=== PATIENT | female | born 1955 | race African-American/Black ===

== ENCOUNTER 2021-04-26 09:13 | Inpatient (IN) ==
[2021-04-20 12:18] LABS: Basophils % 0.6 % (0.0-0.8); Eosinophils # 0.2 10*3/uL (0.0-0.87); Eosinophils % 3.2 % (0.00-10.9); Hematocrit 38.7 VOL% (35.7-47.0); Hemoglobin 12.3 GM/DL (12.0-16.0); Immature Granulocytes % 0.2 %; Immature Granulocytes Absolute 0.01 #; Mean Corpuscular HGB Conc 31.8 GM/DL (32-36); Mean Corpuscular Volume 90.4 FL (87-102); Mean Platelet Volume 9.3 FL (9.6-12.0); Monocytes % 9.2 % (1.7-12.7); Neutrophils % 47.8 % (38.7-73.9); Platelet Count 283 T/CUMM (130-400); Red Blood Count 4.28 MC/CUMM (3.8-5.5); Red Cell Distribution Width 13.2 % (9.3-17.3)
[2021-04-20 12:33] LABS: Calcium 9.3 MG/DL (8.5-10.1); Osmolality,Calculated 276.5 MOS/KG (273-304); Potassium 3.9 MMOL/L (3.5-5.1)
[2021-04-20 12:51] LABS: Eosinophils 3 % (0-10); Hypochromasia Slight; Lymphocytes 36 % (20-55); Platelet Estimate Normal; Segmented Neutrophils 51 % (50-85); Total Cells Counted 100
[~2021-04-26 09:13] MED LIST: CLINDAMYCIN INJ 900 MG/50 ML PREMIX IV ONE
[2021-04-26] MEDS ORDERED: GABAPENTIN 400 MG CAPSULE PO ONE (09:35)
[2021-04-26] MEDS ORDERED: ACETAMINOPHEN 500 MG TABLET PO ONE (09:35)
[2021-04-26] MEDS ORDERED: DIAZEPAM 5 MG TABLET PO ONE (09:35)
[2021-04-26] MEDS ORDERED: FAMOTIDINE 20 MG TABLET PO ONE (09:35)
[2021-04-26] MEDS ORDERED: LACTATED RINGERS 1,000 ML IV SCH (10:00)
[2021-04-26] MEDS ORDERED: TISSUE ADHESIVE 1 EACH APPLICATOR TOP ONE ×2 (11:25→15:09)
[2021-04-26] MEDS ORDERED: LIDOCAINE 1%/EPI INJ 20 ML VIAL ONE (11:25)
[2021-04-26] MEDS ORDERED: BUPIVACAINE MPF 0.25% 30 ML VIAL ONE (11:25)
[2021-04-26] MEDS ORDERED: SEVOFLURANE 1 UNIT/15 MINUTE INH ONE ×10 (11:33→15:01)
[2021-04-26] MEDS ORDERED: propofoL 200 MG/20 ML VIAL IV ONE ×2 (11:33→13:42)
[2021-04-26] MEDS ORDERED: ONDANSETRON 4 MG/2 ML VIAL ONE ×4 (11:33→14:57)
[2021-04-26] MEDS ORDERED: LIDOCAINE 2% 5 ML VIAL ONE (11:33)
[2021-04-26] MEDS ORDERED: ROCURONIUM 50 MG/5 ML VIAL IV ONE ×2 (11:33→13:42)
[2021-04-26] MEDS ORDERED: MIDAZOLAM 2 MG/2 ML VIAL ONE (11:34)
[2021-04-26] MEDS ORDERED: fentaNYL 100 MCG/2 ML VIAL ONE ×2 (11:34→13:54)
[2021-04-26] MEDS ORDERED: ePHEDrine 50 MG/ML VIAL ONE (12:28)
[2021-04-26] MEDS ORDERED: LACTATED RINGERS 1,000 ML IV ONE (12:41)
[2021-04-26] MEDS ORDERED: PHENYLEPHRINE 1 MG/10 ML SYRINGE IV ONE ×2 (12:41→15:33)
[2021-04-26] MEDS ORDERED: DEXAMETHASONE 4 MG/1 ML VIAL ONE ×2 (12:52→14:52)
[2021-04-26] MEDS ORDERED: GLYCOPYRROLATE 0.4 MG/2 ML VIAL ONE (14:52)
[2021-04-26] MEDS ORDERED: diphenhydrAMINE 50 MG/1 ML VIAL IV PRN (15:39)
[2021-04-26] MEDS ORDERED: MEPERIDINE 25 MG/1 ML VIAL IV PRN (15:39)
[2021-04-26] MEDS ORDERED: PROMETHAZINE INJ 25 MG in SODIUM CHLORIDE 0.9% 50 ML IV PRN (15:39)
[2021-04-26] MEDS ORDERED: HYDROmorphone 2 MG/1 ML VIAL IV PRN (15:39)
[2021-04-26] MEDS ORDERED: ONDANSETRON 4 MG/2 ML VIAL IV PRN (15:39)
[2021-04-26] MEDS: MORPHINE 4 MG/1 ML VIAL IV PRN (16:59)
[2021-04-26] MEDS: DEXTROSE 5% LACTATED RINGERS 1,000 ML IV SCH (18:14)
[2021-04-26] MEDS: ONDANSETRON 4 MG/2 ML VIAL IV PRN (19:21)
[2021-04-26] MEDS: ROSUVASTATIN 20 MG TABLET PO SCH (21:07)
[2021-04-26] MEDS: metroNIDAZOLE INJ 500 MG/100 ML PREMIX IV SCH (21:07)
[2021-04-26] MEDS: ALVIMOPAN 12 MG CAPSULE PO SCH (21:07)
[2021-04-27] MEDS: MORPHINE 4 MG/1 ML VIAL IV PRN ×2 (01:07→11:28)
[2021-04-27 05:20] LABS: Basophils % 0.1 % (0.0-0.8); Eosinophils % 0.1 % (0.00-10.9); Hematocrit 30.7 VOL% (35.7-47.0); Hemoglobin 9.9 GM/DL (12.0-16.0); Immature Granulocytes % 0.5 %; Immature Granulocytes Absolute 0.07 #; Lymphocytes # 1.1 10*3/uL (1.4-4.0); Mean Corpuscular HGB Conc 32.2 GM/DL (32-36); Mean Platelet Volume 9.4 FL (9.6-12.0); Monocytes % 5.2 % (1.7-12.7); Neutrophils % 86.1 % (38.7-73.9); Platelet Count 213 T/CUMM (130-400); Red Blood Count 3.45 MC/CUMM (3.8-5.5); Red Cell Distribution Width 13.2 % (9.3-17.3); White Blood Count 13.6 T/CUMM (4-12)
[2021-04-27 05:29] LABS: Hypochromasia 1+
[2021-04-27 05:30] LABS: Microcytosis Slight; Ovalocytes Slight; Platelet Estimate Normal
[2021-04-27 05:32] LABS: Calcium 8.5 MG/DL (8.5-10.1); Osmolality,Calculated 280.4 MOS/KG (273-304); Potassium 3.9 MMOL/L (3.5-5.1)
[2021-04-27] MEDS: metroNIDAZOLE INJ 500 MG/100 ML PREMIX IV SCH (07:18)
[2021-04-27] MEDS ORDERED: LEVOFLOXACIN INJ 500 MG/100 ML PREMIX IV ONE (09:08)
[2021-04-27] MEDS: DOXAZOSIN 1 MG TABLET PO SCH (09:11)
[2021-04-27] MEDS: PANTOPRAZOLE 40 MG TABLET PO SCH (09:11)
[2021-04-27] MEDS: MONTELUKAST 10 MG TABLET PO SCH (09:11)
[2021-04-27] MEDS: POTASSIUM CHLORIDE 20 MEQ TABLET PO SCH (09:11)
[2021-04-27] MEDS: ASPIRIN EC 81 MG TABLET PO SCH (09:11)
[2021-04-27] MEDS: ALVIMOPAN 12 MG CAPSULE PO SCH ×2 (09:11→21:38)
[2021-04-27] MEDS: ONDANSETRON 4 MG/2 ML VIAL IV PRN ×2 (10:15→14:39)
[2021-04-27] MEDS: DEXTROSE 5% LACTATED RINGERS 1,000 ML IV SCH ×2 (20:36→21:36)
[2021-04-27] MEDS: ROSUVASTATIN 20 MG TABLET PO SCH (21:38)
[2021-04-28] MEDS: MORPHINE 4 MG/1 ML VIAL IV PRN ×2 (05:05→12:07)
[2021-04-28 05:29] LABS: Basophils # 0.1 10*3/uL (0.0-0.2); Basophils % 0.6 % (0.0-0.8); Eosinophils % 0.5 % (0.00-10.9); Hematocrit 31.1 VOL% (35.7-47.0); Hemoglobin 10.2 GM/DL (12.0-16.0); Immature Granulocytes % 0.3 %; Immature Granulocytes Absolute 0.02 #; Lymphocytes # 1.3 10*3/uL (1.4-4.0); Lymphocytes % 15.9 % (21.3-54.2); Mean Corpuscular HGB Conc 32.8 GM/DL (32-36); Mean Corpuscular Volume 89.1 FL (87-102); Mean Platelet Volume 9.4 FL (9.6-12.0); Monocytes % 7.3 % (1.7-12.7); Neutrophils % 75.4 % (38.7-73.9); Platelet Count 199 T/CUMM (130-400); Red Blood Count 3.49 MC/CUMM (3.8-5.5); Red Cell Distribution Width 13.4 % (9.3-17.3)
[2021-04-28 05:41] LABS: Calcium 8.4 MG/DL (8.5-10.1); Osmolality,Calculated 281.1 MOS/KG (273-304); Potassium 3.7 MMOL/L (3.5-5.1)
[2021-04-28] MEDS: DEXTROSE 5% LACTATED RINGERS 1,000 ML IV SCH ×3 (07:11→20:23)
[2021-04-28] MEDS: PANTOPRAZOLE 40 MG TABLET PO SCH (09:29)
[2021-04-28] MEDS: MONTELUKAST 10 MG TABLET PO SCH (09:29)
[2021-04-28] MEDS: POTASSIUM CHLORIDE 20 MEQ TABLET PO SCH (09:29)
[2021-04-28] MEDS: ASPIRIN EC 81 MG TABLET PO SCH (09:29)
[2021-04-28] MEDS: ALVIMOPAN 12 MG CAPSULE PO SCH ×2 (09:29→21:04)
[2021-04-28] MEDS: DOXAZOSIN 1 MG TABLET PO SCH (09:29)
[2021-04-28] MEDS: ROSUVASTATIN 20 MG TABLET PO SCH (21:04)
[2021-04-29] MEDS: DEXTROSE 5% LACTATED RINGERS 1,000 ML IV SCH ×3 (06:15→21:15)
[2021-04-29] MEDS: MONTELUKAST 10 MG TABLET PO SCH (09:16)
[2021-04-29] MEDS: ALVIMOPAN 12 MG CAPSULE PO SCH ×2 (09:16→22:53)
[2021-04-29] MEDS: ASPIRIN EC 81 MG TABLET PO SCH (09:16)
[2021-04-29] MEDS: PANTOPRAZOLE 40 MG TABLET PO SCH (09:16)
[2021-04-29] MEDS: DOXAZOSIN 1 MG TABLET PO SCH (09:16)
[2021-04-29] MEDS: POTASSIUM CHLORIDE 20 MEQ TABLET PO SCH (09:16)
[2021-04-29] MEDS: ROSUVASTATIN 20 MG TABLET PO SCH (21:13)
[2021-04-30] MEDS: MONTELUKAST 10 MG TABLET PO SCH (09:02)
[2021-04-30] MEDS: POTASSIUM CHLORIDE 20 MEQ TABLET PO SCH (09:02)
[2021-04-30] MEDS: PANTOPRAZOLE 40 MG TABLET PO SCH (09:03)
[2021-04-30] MEDS: DOXAZOSIN 1 MG TABLET PO SCH (09:03)
[2021-04-30] MEDS: ASPIRIN EC 81 MG TABLET PO SCH (09:03)
[2021-04-30 11:52] VITALS: BP 135/60
== END 2021-04-30 12:00 | disposition home or self-care (01) | DRG 331 ==
LOC: N.OR 09:13 → N.SDSINP 09:13 → N.4E 15:59
PROVIDERS: ADMIT Surgery; ATTEND Surgery